=== PATIENT | male | born 1955 | race Caucasian/White ===

== ENCOUNTER 2017-04-18 08:55 | Day surgery (SDC) | payer OTHER ==
[~2017-04-18] VITALS: Ht 182.9 cm; Wt 93.0 kg
[~2017-04-18 08:55] MED LIST: ADVIL,NUPRIN,M200 MG PO; ALLOPURINOL100 MG PO; ALLOPURINOL300 MG PO; AMIODARONE HCL200 MG PO; AMIODARONE HCL400 MG PO; BACTRIM,SEPT1 TABLET PO; CARTIA XT240 MG PO; CIPRO500 MG PO; DIGITEK125 MC2 PO; DIGOX250 MCG PO; DIGOXIN125 MCG PO; DOCUSATE SODIU100 MG PO; ELIQUIS5 MG PO; FAMOTIDINE20 MG PO; FINASTERIDE5 MG PO; FLOMAX0.4 MG PO; FLORINEF ACETA0.1 MG PO; K-DUR20 MEQ PO; LIPITOR20 MG PO; LISINOPRIL10 MG PO; LOPRESSOR50 MG PO; MAG-OXIDE400 MG PO; METOPROLOL SUC100 MG PO; METOPROLOL SUCC50 MG PO; METOPROLOL TART50 MG PO; MIDODRINE HCL5 MG PO; OXYCODONE HCL5 MG PO; PEPCID20 MG PO; PROSCAR5 MG PO; SINGULAIR10 MG PO; TAMSULOSIN HCL0.4 MG PO; VITAMIN D2000 UNIT PO; WARFARIN SODIUM1 MG PO; ZYLOPRIM100 MG PO
== END 2017-04-18 11:16 | disposition home or self-care (01) ==
LOC: CATH 08:55
PROC: 5A2204Z Restoration of Cardiac Rhythm, Single (ICD-10-PCS; principal; 2017-04-18)
DX: I48.92 Unspecified atrial flutter (principal); I48.0 Paroxysmal atrial fibrillation; Z79.01 Long term (current) use of anticoagulants; Z95.0 Presence of cardiac pacemaker; Z95.2 Presence of prosthetic heart valve; E78.5 Hyperlipidemia, unspecified; I34.8 Other nonrheumatic mitral valve disorders; I12.9 Hypertensive chronic kidney disease with stage 1 through stage 4 chronic kidney disease, or unspecified chronic kidney disease; N18.2 Chronic kidney disease, stage 2 (mild); Z86.73 Personal history of transient ischemic attack (TIA), and cerebral infarction without residual deficits; Z88.0 Allergy status to penicillin
CPT/HCPCS: 93005

== ENCOUNTER 2017-08-28 07:53 | Day surgery (SDC) | payer OTHER ==
[~2017-08-28] VITALS: Ht 182.9 cm; Wt 96.2 kg
[~2017-08-28 07:53] MED LIST changes: +MULTAQ400 MG PO
== END 2017-08-28 17:32 | disposition home or self-care (01) ==
LOC: CATH 07:53
DX: I25.10 Atherosclerotic heart disease of native coronary artery without angina pectoris (principal); I25.82 Chronic total occlusion of coronary artery; I48.0 Paroxysmal atrial fibrillation; E78.5 Hyperlipidemia, unspecified; I12.9 Hypertensive chronic kidney disease with stage 1 through stage 4 chronic kidney disease, or unspecified chronic kidney disease; N18.2 Chronic kidney disease, stage 2 (mild); Z95.0 Presence of cardiac pacemaker; Z79.01 Long term (current) use of anticoagulants; Z86.73 Personal history of transient ischemic attack (TIA), and cerebral infarction without residual deficits; I95.1 Orthostatic hypotension; K21.9 Gastro-esophageal reflux disease without esophagitis; N40.0 Benign prostatic hyperplasia without lower urinary tract symptoms
CPT/HCPCS: 93005; C1760; C1769; C1887; C1894; J1644; J2250; J3010